=== PATIENT | female | born 1995 | race Hispanic/Latino ===

== ENCOUNTER 2025-07-28 14:42 | Emergency (ER) | payer OTHER, SELFPAY ==
--- NOTE | ~2025-07-28 | US_ITS ---
EXAMINATION: US OB <=14 wk fetus w TV, 07/28/2025 16:30 CDT HISTORY: RLQ pain, +preg test Comparison: None Technique: Taylor-scale and color Doppler images were obtained. Findings: Uterus anteverted 8.6 x 4.1 x 4.3 cm, section scar is noted with nonspecific fluid measuring 7 x 6 x 7 mm. Endometrium 1.4 cm, no increased flow. Right ovary 4.3 x 3.1 x 3.1 cm, probable dominant complex follicle 1.9 x 2.2 cm, no adnexal mass, normal flow. Left ovary 2.3 x 1.9 x 2.3 cm, no adnexal mass, normal flow. IMPRESSION: There is no intrauterine gestational sac identified. No adnexal mass to suggest ectopic . Serial beta-hCG and follow-up is recommended Reviewed, dictated and finalized at location P. IMPRESSION: There is no intrauterine gestational sac identified. No adnexal mas s to suggest ectopic . Serial beta-hCG and follow-up is recommended
[2025-07-28 14:53] VITALS: BP 114/74; PULSE 100; RESP 16; TEMP 36.4; O2SAT 99
--- NOTE | 2025-07-28 14:59 | ED.ABDPAIN ---
HPI - Abdominal Pain General Chief Complaint: Abdominal Pain Stated Complaint: right flank pain Time Seen by Provider: 07/28/25 14:49 Source: patient Mode of arrival: ambulatory Limitations: no limitations History of Present Illness HPI narrative: Patient is a 29 y/o female, with PMH of bariatric surgery, who presents to the ED with c/o R sided abd pain. Patient is Croatian-speaking. [employer] bilingual interpreter was utilized for assistance with translation. Reports she developed pain throughout her right lower abdomen, radiating around to her right lower back this morning. Pain has been constant. She has not taken anything for the pain. Denies history of similar pain. Does report having slight discomfort with urination today but this has resolved. Denies hematuria. Denies history of kidney stones. Denies nausea, vomiting, diarrhea. Last bowel movement was 3 days ago. Denies fevers. Related Data Allergies Allergy/AdvReac Type Severity Reaction Status Date / Time No Known Allergies Allergy Verified 07/28/25 15:00 Review of Systems Review of Systems: All systems reviewed & are unremarkable except as noted in HPI. All systems reviewed & are unremarkable except as noted in HPI and below PMFSH Social History Social History Smoking status: Never smoker Do You Feel Safe in your Home?: Yes Lack of Transportation: No Lack of Food: Never True Current Housing: I Have Housing Concerned About Future Housing: No Difficulty Paying Gas/Electric Bills: No Difficulty Paying for Meds: No Currently Unemployed: No Education: High School Diploma/GED Difficulty w/ Childcare or Family Care: No Exam Narrative: GENERAL: Mildly uncomfortable appearing, obese with BMI of 34.9, non-toxic, in no acute distress. HEAD: Normocephalic, atraumatic. RESPIRATORY: Airway patent, respirations nonlabored. Clear to auscultation bilaterally, no rales, rhonchi, wheezing. CARDIOVASCULAR: Regular rate and rhythm without murmurs, rubs, or gallops. ABDOMINAL: Soft, moderate tenderness to palpation R lower abdomen, R lateral lower abdomen, no rebound, nondistended. Normoactive BS. MUSCULOSKELETAL: Moves all extremities. No gross deformities. SKIN: Warm, dry, normal color. NEURO: A&O X3. Speech clear. Cranial nerves II-XII grossly intact. Steady gait. No ataxic movements. PSYCHIATRIC: Appropriate mood and affect. Normal interaction. Course Vital Signs Vital signs: Vital Signs Temperature 97.5 F L 07/28/25 14:53 Pulse Rate 100 07/28/25 14:53 Respiratory Rate 16 07/28/25 14:53 Blood Pressure 114/74 07/28/25 14:53 Pulse Oximetry 99 07/28/25 14:53 Oxygen Delivery Room Air 07/28/25 14:53 Temperature 97.5 F L 07/28/25 14:53 Pulse Rate 84 07/28/25 17:11 Respiratory Rate 16 07/28/25 17:11 Blood Pressure 109/72 07/28/25 17:11 Pulse Oximetry 100 07/28/25 17:11 Oxygen Delivery Room Air 07/28/25 14:53 MDM - Abdominal Pain MDM Narrative Medical decision making narrative: Patient presented to ED with c/o R sided lower abd/flank pain that began this morning. No hx of similar pain. Reports some pain with urinating today. VSS upon arrival. Patient in NAD, but mildly uncomfortable appearing. Patient was given dose of morphine for pain. Bedside urine test was positive in the ED. Patient updated on this. Patient reports her nexplanon was removed 2 months ago. She has not had a normal menstrual cycle in several years. This would make her (hx of 2 previous miscarriages). Discussed that Tylenol is the only safe medication to take in for pain. Advised she did receive 1 dose of opioid medication here and that a 1 time dose should not negatively impact her . Laboratory studies unremarkable. No leukocytosis. Beta HCG 110. UA with 3-5 RBC, no signs of infection. US obtained-no intrauterine gestation, but also no adnexal mass to suggest ectopic. Normal blood flow to bilateral ovaries. Patient will require close outpatient follow-up. Discussed lab and imaging findings extensively with patient. I have low suspicion for acute appendicitis given lack of leukocytosis, fevers. Low suspicion for kidney stone. No previous history of such. Only very small amount RBC in urine. Discussed possibility of implantation pain. Patient advised to have very close follow-up with OBGYN for further evaluation and repeat testing. Discussed strict return precautions, including should pain worsen or continue that she may need to be re-checked for ectopic . Advised to contact OBGYN on Wednesday. Given strict return precautions. Patient and family in agreement with plan. Discharged in stable condition. Medical Records Attestation: I reviewed the patient's medical records. Lab Data Attestation: I reviewed the patient's lab results. 07/28/25 15:04 07/28/25 15:04 Labs: Lab Results 07/28/25 07/28/25 07/28/25 Range/Units 15:04 15:09 15:20 WBC 5.9 (4.5-10.0) K/mm3 RBC 4.53 (4.2-5.4) M/mm3 Hgb 13.7 (12.0-15.0) g/dL Hct 39.4 (37.0-47.0) % MCV 87.0 (80-100) fl MCH 30.2 (26-34) pg MCHC 34.8 (32-36) g/dl RDW 12.0 (11.5-14.5) % Plt Count 286 (150-375) k/mm3 MPV 9.7 (7.4-10.4) fl Immature Gran % (Auto) 0.3 (0-0.5) % Neut % (Auto) 62.0 (45.5-73.1) % Lymph % (Auto) 29.8 (18.3-44.2) % [place] % (Auto) 7.1 (2.6-8.5) % Eos % (Auto) 0.3 (0-4.4) % Baso % (Auto) 0.5 (0.2-1.2) % Lymph # (Auto) 1.76 (0.9-3.2) K/mm3 [place] # (Auto) 0.4 (0.1-0.6) K/mm3 Eos # (Auto) 0.0 (0-0.3) K/mm3 Baso # (Auto) 0.0 (0.0-0.1) K/mm3 Abs Immat Gran (auto) 0.02 (0.00-0.031) K/mm3 Absolute Neuts (auto) 3.7 (1.3-6.7) K/mm3 Absolute Nucleated RBC 0.000 (0.0-0.012) K/mm3 Nucleated RBC % 0.0 (0.0-0.2) % Sodium 138 (137-145) mmol/L Potassium 3.4 (3.4-5.0) mmol/L Chloride 105 (98-107) mmol/L Carbon Dioxide 25 (22-30) mmol/L Anion Gap 8 (4-12) mmol/L BUN 18 H (7-17) mg/dL Creatinine 0.63 L (0.7-1.0) mg/dL Estim Creat Clear Calc 127 ml/min Estimated GFR > 60 (59 - ) Glucose 90 (65-110) mg/dL Calcium 9.0 (8.4-10.2) mg/dL Total Bilirubin 1.3 (0.2-1.3) mg/dL AST 22 (14-36) U/L ALT 14 (6-35) U/L Alkaline Phosphatase 61 (38-126) U/L Total Protein 7.6 (6.3-8.2) g/dL Albumin 4.3 (3.5-5.1) g/dL Lipase 47 (23-300) U/L Beta HCG, Quant 110.87 mIU/ML Urine Color Yellow (Yellow) Urine Appearance Clear (Clear) Urine pH 6.5 (5.0-9.0) Ur Specific [place] 1.030 (1.001-1.035) Urine Protein Trace (Negative) mg/dL Urine Glucose (UA) Negative (Negative) mg/dL Urine Ketones Trace H (Negative) mg/dL Ur Blood (Man) Negative (Negative) Urine Nitrate Negative (Negative) Urine Bilirubin Negative (Negative) Urine Urobilinogen 4.0 H (<2.0) mg/dL Add Ur Microanalysis Reviewed Leukocyte Esterase Rfl Trace H (Negative) MEG/UL Urine RBC 3-5 H (0-2) /hpf Urine WBC 0-5 (0-3) /hpf Ur Squamous Epith Cells Few (Few) /hpf Urine Bacteria 1+ H /hpf Urine Casts 0-2 POC Urine HCG, Qual Positive (Negative) Imaging Data Attestation: I personally reviewed and interpreted this imaging study as follows: Radiologist's impression: ITS Impressions Obstetrics Ultrasound 07/28/25 17:10 IMPRESSION: There is no intrauterine gestational sac identified. No adnexal mass to suggest ectopic . Serial beta-hCG and follow-up is recommended Discharge Plan Discharge Clinical Impression: Early stage of , Right lower quadrant abdominal pain Patient Disposition: Home Condition: Stable Instructions: Antibiotic Form, Abdominal Pain in (ED) Additional Instructions: You will need to follow-up closely with your OBGYN for further evaluation and repeat laboratory testing/ultrasound for your . Call office on Wednesday to make appointment as soon as possible. You may continue Tylenol as needed for pain. Stay well-hydrated. Return to the ED if you experience worsening or severe pain, vaginal bleeding, unable to keep down food or drink, persistent fevers, or any other symptoms of concern. Patient Language: Croatian Prescriptions: No Action Classic 28 mg iron- 800 mcg tablet 1 tablet PO DAILY Qty: 90 3RF Follow-up/Referrals: UNKNOWN,DOCTOR [Primary Care Provider] Time of Disposition: 17:23
[2025-07-28 15:10] LABS: Hematocrit 39.4 % (37.0-47.0); Hemoglobin 13.7 g/dL (12.0-15.0); Immature Granulocyte Percent A 0.3 % (0-0.5); Lymphocytes Absolute Auto 1.76 K/mm3 (0.9-3.2); Mean Corpuscular HGB Conc 34.8 g/dl (32-36); Mean Corpuscular Hemoglobin 30.2 pg (26-34); Mean Corpuscular Volume 87.0 fl (80-100); Nucleated Red Blood Cells Absolute Auto 0.000 K/mm3 (0.0-0.012); Nucleated Red Blood Cells Perc 0.0 % (0.0-0.2); Platelet Count Result 286 k/mm3 (150-375); Red Blood Count 4.53 M/mm3 (4.2-5.4); White Blood Count 5.9 K/mm3 (4.5-10.0)
[2025-07-28] MEDS: ONDANSETRON INJ 4 MG/2 ML VIAL IV PUSH (15:10)
[2025-07-28] MEDS: MORPHINE SULFATE (*CRX) 4 MG/ML INJ IV PUSH (15:12)
[2025-07-28 15:20] VITALS: BP 110/68; PULSE 80; RESP 15; O2SAT 100
[2025-07-28 15:22] LABS: BEDSIDEPREGUCG Positive (Negative)
--- NOTE | 2025-07-28 15:23 | PC.NURSE ---
EDP informed of pt bedside results
[2025-07-28 15:30] LABS: Alanine Aminotransferase 14 U/L (6-35); Albumin Level 4.3 g/dL (3.5-5.1); Alkaline Phosphatase 61 U/L (38-126); Anion Gap 8 mmol/L (4-12); Aspartate Amino Transferase 22 U/L (14-36); Bilirubin,Total 1.3 mg/dL (0.2-1.3); Blood Urea Nitrogen 18 mg/dL (7-17); Calcium 9.0 mg/dL (8.4-10.2); Carbon Dioxide 25 mmol/L (22-30); Chloride 105 mmol/L (98-107); Estimated CRCL calculation 127 ml/min; Estimated Glomerular Filt Rate > 60; Glucose 90 mg/dL (65-110); Lipase 47 U/L (23-300); Potassium 3.4 mmol/L (3.4-5.0); Sodium 138 mmol/L (137-145); Total Protein 7.6 g/dL (6.3-8.2)
--- OUTSIDE RECORDS SUMMARY | 2025-07-28 15:30 | XMS_ITS ---
Author Organization Unknown ENCOUNTERS Encounter Performer Location Date Diagnosis Diagnosis Status Pre Admit [place] [id number] [place], [place] [id number] Emergency [facility] [address] [place] [id number] *Note: Encounters from your own facility or health system may be excluded. Allergies, Adverse Reactions, Alerts Allergen Type Severity Identification Date Medications Name Date Quantity Days Supplied GPI Number
[2025-07-28 15:33] LABS: Add Urine Microscopic? YES; Appearance Urine Clear (Clear); Glucose Urine UA Negative (Negative); Leukocyte Esterase Ur Trace LEU/UL (Negative); Need Manual Microscopic Reviewed; Nitrate Urine Negative (Negative); Non Pathogenic Casts 0-2; Specific Grav Ur 1.030 (1.001-1.035)
[2025-07-28 15:59] LABS: Beta HCG Quantitative 110.87 mIU/ML
[2025-07-28 17:11] VITALS: BP 109/72; PULSE 84; RESP 16; O2SAT 100
[2025-07-28 17:53] VITALS: BP 106/65; PULSE 88; RESP 15; TEMP 36.5; O2SAT 100
== END 2025-07-28 17:55 | disposition home or self-care (01) ==
PROVIDERS: Emergency Medicine; Emergency Provider Physician Assistant
DX: R10.31 Right lower quadrant pain (principal); Z33.1 Pregnant state, incidental; Z98.84 Bariatric surgery status
CPT/HCPCS: 36415; 76801; 76817; 80053; 81001; 81025; 83690; 84702; 85025; 96374; 96375; 99284; J2270; J2405

== ENCOUNTER 2025-08-09 22:27 | Emergency (ER) | payer OTHER, SELFPAY ==
--- NOTE | ~2025-08-09 | US_ITS ---
EXAM/PROCEDURE: US OB <=14 wk fetus w TV HISTORY: Vag bleeding in , r/o ectopic COMPARISON: None available. TECHNIQUE: Directed exam for viability and dates performed. Vaginal bleeding. NOTE: Exam somewhat limited due to suboptimal acoustic windows. FINDINGS: Uterus measures 9.2 x 5.0 x 5.2 cm. Gestational sac appears to be present corresponding to estimated gestational age of 5 weeks 5 days. No pole is clearly identified. Right ovary: 2.9 x 2.3 x 2.5 cm Left ovary: 3.0 x 1.8 x 4.1 cm. IMPRESSION: Somewhat limited exam demonstrating probable intrauterine gestation, however no clearly identified pole. Correlate with follow-up quantitative hCG levels, and repeat ultrasound is recommended in 5-7 days or sooner if clinically appropriate. Note: Preliminary radiology report provided by [facility] RAD radiologist. Reviewed, dictated and finalized at location A. ING PHOTOGRAPHER IMPRESSION: Somewhat limited exam demonstrating probable intrauterine gestation , however no clearly identified pole. Correlate with follow-up quantitati ve hCG levels, and repeat ultrasound is recommended in 5-7 days or sooner if cl inically appropriate. Note: Preliminary radiology report provided by [facility] RAD radiologist.
[2025-08-09 22:28] VITALS: BP 105/61; PULSE 99; RESP 14; TEMP 36.7; O2SAT 99
[2025-08-10 00:39] LABS: Hematocrit 36.9 % (37.0-47.0); Hemoglobin 12.6 g/dL (12.0-15.0); INR 1.0; Immature Granulocyte Percent A 3.5 % (0-0.5); Lymphocytes Absolute Auto 2.73 K/mm3 (0.9-3.2); Mean Corpuscular HGB Conc 34.1 g/dl (32-36); Mean Corpuscular Hemoglobin 30.3 pg (26-34); Mean Corpuscular Volume 88.7 fl (80-100); Nucleated Red Blood Cells Absolute Auto 0.000 K/mm3 (0.0-0.012); Nucleated Red Blood Cells Perc 0.0 % (0.0-0.2); Platelet Count Result 267 k/mm3 (150-375); Prothrombin Time 13.7 Seconds (11.1-14.7); Red Blood Count 4.16 M/mm3 (4.2-5.4); White Blood Count 7.7 K/mm3 (4.5-10.0)
[2025-08-10 00:40] LABS: Partial Thromboplastin Time 28.6 Seconds (22.3-36.8)
[2025-08-10 00:42] LABS: Alanine Aminotransferase 14 U/L (6-35); Albumin Level 4.2 g/dL (3.5-5.1); Alkaline Phosphatase 44 U/L (38-126); Anion Gap 8 mmol/L (4-12); Aspartate Amino Transferase 24 U/L (14-36); Bilirubin,Total 0.4 mg/dL (0.2-1.3); Blood Urea Nitrogen 18 mg/dL (7-17); Calcium 8.8 mg/dL (8.4-10.2); Carbon Dioxide 24 mmol/L (22-30); Chloride 104 mmol/L (98-107); Estimated CRCL calculation 124 ml/min; Estimated Glomerular Filt Rate > 60; Glucose 109 mg/dL (65-110); Potassium 3.9 mmol/L (3.4-5.0); Sodium 136 mmol/L (137-145); Total Protein 7.1 g/dL (6.3-8.2)
[2025-08-10 00:58] LABS: Beta HCG Quantitative 12570.00 mIU/ML
[2025-08-10 03:18] VITALS: BP 103/67; PULSE 75; RESP 16; O2SAT 100
--- NOTE | 2025-08-10 03:35 | ED.GENADULT ---
HPI - General Adult General Chief complaint: ENRICHMENT ASSISTANT Stated complaint: preg vag bleed Time Seen by Provider: 08/10/25 00:20 History of Present Illness HPI narrative: This is a G4 P 1 presenting for vaginal bleeding in . She had her IUD removed and has not had a period since then. However she has now had a positive test at home. She then developed spotting yesterday which is turn into red bleeding and passage of clots today. She does have some crampy abdominal pain. She has not seen OBGYN Related Data Allergies Allergy/AdvReac Type Severity Reaction Status Date / Time No Known Allergies Allergy Verified 08/09/25 22:32 [facility] Social History Social History (Updated 08/08/25 @ 08:50 by Helen Quintero [facility]) Alcohol intake: current Substance use: never Substance use type: does not use Do You Feel Safe in your Home?: Yes Lack of Transportation: No Lack of Food: Never True Current Housing: I Have Housing Concerned About Future Housing: No Difficulty Paying Gas/Electric Bills: No Difficulty Paying for Meds: No Currently Unemployed: No Education: High School Diploma/GED Difficulty w/ Childcare or Family Care: No Living arrangements: with family Gender identity (if verbalized by the patient): Female Exam Narrative: APPEARANCE: No apparent distress. Head: atraumatic. EYES: EOMI, NOSE: Atraumatic NECK: Trachea midline RESPIRATORY: No increased rate of breathing CARDIOVASCULAR: RRR, ABDOMINAL: Tender to palpation in the suprapubic region. No guarding or rebound. MUSCULOSKELETAl: No obvious deformities NEURO: Alert. Moving 4/4 extremities SKIN:: Warm, dry. Normal color PSYCHIATRIC: Normal affect Course Vital Signs Vital signs: Vital Signs Temperature 98.1 F 08/09/25 22:28 Pulse Rate 99 08/09/25 22:28 Respiratory Rate 14 08/09/25 22:28 Blood Pressure 105/61 08/09/25 22:28 Pulse Oximetry 99 08/09/25 22:28 Oxygen Delivery Room Air 08/09/25 22:28 Temperature 98.3 F 08/10/25 03:45 Pulse Rate 76 08/10/25 03:45 Respiratory Rate 16 08/10/25 03:45 Blood Pressure 100/78 08/10/25 03:45 Pulse Oximetry 99 08/10/25 03:45 Oxygen Delivery Room Air 08/09/25 22:28 Medical Decision Making MDM Narrative Medical decision making narrative: -Course: 29-year-old female presenting [place] [address]. Patient is O negative given 1 dose of RhoGAM. Ultrasound shows a gestational sac and yolk sac but no definitive pole. Estimated gestational age 5 weeks and 5 days by gestational sac diameter. Patient was informed of the results that she needs to follow-up with her OBGYN next 48 hours for repeat hCG further testing. Patient's given return precautions for bleeding. -DDX includes but is not limited to: Threatened miscarriage, miscarriage, ectopic Vital Signs Vital Signs: Vital Signs Temperature 98.1 F 08/09/25 22:28 Pulse Rate 99 08/09/25 22:28 Respiratory Rate 14 08/09/25 22:28 Blood Pressure 105/61 08/09/25 22:28 Pulse Oximetry 99 08/09/25 22:28 Oxygen Delivery Room Air 08/09/25 22:28 Temperature 98.3 F 08/10/25 03:45 Pulse Rate 76 08/10/25 03:45 Respiratory Rate 16 08/10/25 03:45 Blood Pressure 100/78 08/10/25 03:45 Pulse Oximetry 99 08/10/25 03:45 Oxygen Delivery Room Air 08/09/25 22:28 Lab Data 08/10/25 00:20 08/10/25 00:20 Labs: Lab Results 08/10/25 Range/Units 00:20 WBC 7.7 (4.5-10.0) K/mm3 RBC 4.16 L (4.2-5.4) M/mm3 Hgb 12.6 (12.0-15.0) g/dL Hct 36.9 L (37.0-47.0) % MCV 88.7 (80-100) fl MCH 30.3 (26-34) pg MCHC 34.1 (32-36) g/dl RDW 11.9 (11.5-14.5) % Plt Count 267 (150-375) k/mm3 MPV 10.1 (7.4-10.4) fl Immature Gran % (Auto) 3.5 H (0-0.5) % Neut % (Auto) 52.5 (45.5-73.1) % Lymph % (Auto) 35.6 (18.3-44.2) % [place] % (Auto) 7.3 (2.6-8.5) % Eos % (Auto) 0.7 (0-4.4) % Baso % (Auto) 0.4 (0.2-1.2) % Lymph # (Auto) 2.73 (0.9-3.2) K/mm3 [place] # (Auto) 0.6 (0.1-0.6) K/mm3 Eos # (Auto) 0.1 (0-0.3) K/mm3 Baso # (Auto) 0.0 (0.0-0.1) K/mm3 Abs Immat Gran (auto) 0.27 H (0.00-0.031) K/mm3 Absolute Neuts (auto) 4.0 (1.3-6.7) K/mm3 Absolute Nucleated RBC 0.000 (0.0-0.012) K/mm3 Nucleated RBC % 0.0 (0.0-0.2) % PT 13.7 (11.1-14.7) Seconds INR 1.0 APTT 28.6 (22.3-36.8) Seconds Sodium 136 L (137-145) mmol/L Potassium 3.9 (3.4-5.0) mmol/L Chloride 104 (98-107) mmol/L Carbon Dioxide 24 (22-30) mmol/L Anion Gap 8 (4-12) mmol/L BUN 18 H (7-17) mg/dL Creatinine 0.62 L (0.7-1.0) mg/dL Estim Creat Clear Calc 124 ml/min Estimated GFR > 60 (59 - ) Glucose 109 (65-110) mg/dL Calcium 8.8 (8.4-10.2) mg/dL Total Bilirubin 0.4 (0.2-1.3) mg/dL AST 24 (14-36) U/L ALT 14 (6-35) U/L Alkaline Phosphatase 44 (38-126) U/L Total Protein 7.1 (6.3-8.2) g/dL Albumin 4.2 (3.5-5.1) g/dL Beta HCG, Quant 96150.00 mIU/ML Blood Type O Negative Antibody Screen Negative Screen Not Reportable Baby's Blood Type Not Reportable Baby's FEI Not Reportable Doses of RhIg Required 1 Discharge Plan Discharge Clinical Impression: Threatened miscarriage Patient Disposition: Home Condition: Stable Instructions: Antibiotic Form, Threatened Miscarriage (ED) Additional Instructions: You were seen in the emergency department for vaginal bleeding in . This is a threatened miscarriage. Please follow-up with your OBGYN in the next 48-72 hours. [place] [address] on 08/10. If you develop significant bleeding of more than 1 pad an hour for 2 hours in a row please return to the ED for re-evaluation. Acudi? al servicio de urgencias por sangrado vaginal dianne el embarazo. Se trata de gracia amenaza de aborto. Por favor, consulte con muro ginec?logo en las pr?ximas 48-72 horas. Muro nivel de hCG [place] de [address] el 7 de . Si presenta un sangrado abundante (m?s de gracia compresa por hora) dianne dos horas seguidas, regrese al servicio de urgencias para gracia reevaluaci?n. Patient Language: Georgian Prescriptions: No Action Classic 28 mg iron- 800 mcg tablet 1 tablet PO DAILY Qty: 90 3RF ondansetron HCl 4 mg tablet 4 mg PO Q6H PRN (Reason: nausea and vomiting) Qty: 30 1RF progesterone micronized 200 mg capsule 200 mg vaginal QHS Qty: 30 0RF Follow-up/Referrals: UNKNOWN,DOCTOR [Primary Care Provider]
[2025-08-10 03:45] VITALS: BP 100/78; PULSE 76; RESP 16; TEMP 36.8; O2SAT 99
== END 2025-08-10 04:06 | disposition home or self-care (01) ==
PROVIDERS: Emergency Provider Emergency Medicine
DX: O20.0 Threatened abortion (principal); Z3A.01 Less than 8 weeks gestation of pregnancy
CPT/HCPCS: 36415; 76801; 76817; 80053; 84702; 85025; 85461; 85610; 85730; 86850; 86900; 86901; 90384; 96372; 99284; J2790

== ENCOUNTER 2025-08-12 16:26 | Emergency (ER) | payer OTHER, SELFPAY ==
[2025-08-12 16:33] VITALS: BP 118/63; PULSE 124; RESP 14; O2SAT 100
--- NOTE | 2025-08-12 16:35 | ED_ITS ---
HPI - Female Genitourinary General Chief complaint: Vaginal Bleeding Stated complaint: vaginal bleeding Time Seen by Provider: 08/12/25 16:34 Source: patient Mode of arrival: ambulatory Limitations: no limitations History of Present Illness HPI Narrative: 29 years old female, does not speak Persian came to our emergency room because of vaginal bleeding worse today than 2 days ago. Patient was seen in our emergency room 2 days ago, pelvic ultrasound showed Probable intrauterine gestation., beta hCG quant 89475.00. Patient is O negative, 1 dose of RhoGAM was given 2 days ago Patient denies any abdominal pain. Patient is 4, para 1 Patient is scheduled to see her OBGYN on August 17. Related Data Allergies Allergy/AdvReac Type Severity Reaction Status Date / Time No Known Allergies Allergy Verified 08/09/25 22:32 Review of Systems 2 Review of Systems: All systems reviewed & are unremarkable except as noted in HPI and below PMFSH Social History Social History Alcohol intake: current Substance use: never Substance use type: does not use Do You Feel Safe in your Home?: Yes Lack of Transportation: No Lack of Food: Never True Current Housing: I Have Housing Concerned About Future Housing: No Difficulty Paying Gas/Electric Bills: No Difficulty Paying for Meds: No Currently Unemployed: No Education: High School Diploma/GED Difficulty w/ Childcare or Family Care: No Living arrangements: with family Gender identity (if verbalized by the patient): Female Exam 2 Narrative: General appearance: Well-developed, well-nourished Skin: Normal color Chest and respiratory: Airway patent, no respiratory distress, no accessory muscle use Heart: Regular rate/rhythm Abdomen: Soft, nontender, no organomegaly, quiet bowel sounds Pelvic exam showed no active vaginal bleed, 1 long Q-tip was enough to dry the whole vaginal pouch. 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, no gross motor deficit Course Vital Signs Vital signs: Vital Signs Pulse Rate 124 H 08/12/25 16:33 Respiratory Rate 14 08/12/25 16:33 Blood Pressure 118/63 08/12/25 16:33 Pulse Oximetry 100 08/12/25 16:33 Oxygen Delivery Room Air 08/12/25 16:33 Pulse Rate 76 08/12/25 18:06 Respiratory Rate 16 08/12/25 18:06 Blood Pressure 109/76 08/12/25 18:06 Pulse Oximetry 99 08/12/25 18:06 Oxygen Delivery Room Air 08/12/25 16:33 MDM - Female Genitourinary MDM Narrative Medical decision making narrative: Patient came with fast bleed, Patient was seen in our emergency room 2 days ago, workup showed positive , ultrasound showed possible intrauterine Workup today showed beta hCG 68249 compared to 95568 2 days ago. Pelvic exam showed trace of blood, hemoglobin today is 13.5 compared to 12.62 2 days ago. Patient is scheduled to see her OBGYN in 5 days Diagnosis threatened Patient was advised to take it easy, pelvic rest, bed rest, plenty of fluid intake and Tylenol as needed. The pt was discharged to home.the pt,s condition upon discharge was fair,education was provided to the pt in reference to the final impression,discharge study results,treatment,prognosis and need for follow up . Differential Diagnosis Differential diagnosis: Likely other (Threatened , miscarriage) Medical Records Attestation: I reviewed the patient's medical records. Lab Data Attestation: I reviewed the patient's lab results. 08/12/25 16:51 08/12/25 16:51 Labs: Lab Results 08/12/25 Range/Units 16:51 WBC 6.7 (4.5-10.0) K/mm3 RBC 4.45 (4.2-5.4) M/mm3 Hgb 13.5 (12.0-15.0) g/dL Hct 38.6 (37.0-47.0) % MCV 86.7 (80-100) fl MCH 30.3 (26-34) pg MCHC 35.0 (32-36) g/dl RDW 11.9 (11.5-14.5) % Plt Count 286 (150-375) k/mm3 MPV 9.9 (7.4-10.4) fl Immature Gran % (Auto) 0.3 (0-0.5) % Neut % (Auto) 63.0 (45.5-73.1) % Lymph % (Auto) 27.3 (18.3-44.2) % [place] % (Auto) 8.5 (2.6-8.5) % Eos % (Auto) 0.3 (0-4.4) % Baso % (Auto) 0.6 (0.2-1.2) % Lymph # (Auto) 1.84 (0.9-3.2) K/mm3 [place] # (Auto) 0.6 (0.1-0.6) K/mm3 Eos # (Auto) 0.0 (0-0.3) K/mm3 Baso # (Auto) 0.0 (0.0-0.1) K/mm3 Abs Immat Gran (auto) 0.02 (0.00-0.031) K/mm3 Absolute Neuts (auto) 4.3 (1.3-6.7) K/mm3 Absolute Nucleated RBC 0.000 (0.0-0.012) K/mm3 Nucleated RBC % 0.0 (0.0-0.2) % PT 13.9 (11.1-14.7) Seconds INR 1.1 APTT 28.3 (22.3-36.8) Seconds Sodium 135 L (137-145) mmol/L Potassium 3.7 (3.4-5.0) mmol/L Chloride 105 (98-107) mmol/L Carbon Dioxide 22 (22-30) mmol/L Anion Gap 8 (4-12) mmol/L BUN 15 (7-17) mg/dL Creatinine 0.58 L (0.7-1.0) mg/dL Estim Creat Clear Calc Not Reportable Estimated GFR > 60 (59 - ) Glucose 86 (65-110) mg/dL Calcium 9.0 (8.4-10.2) mg/dL Total Bilirubin 0.7 (0.2-1.3) mg/dL AST 22 (14-36) U/L ALT 14 (6-35) U/L Alkaline Phosphatase 48 (38-126) U/L Total Protein 7.7 (6.3-8.2) g/dL Albumin 4.4 (3.5-5.1) g/dL Beta HCG, Quant 20971.00 mIU/ML Critical Care Time Critical Care Time Critical Care Time: No Discharge Plan Discharge Clinical Impression: , spontaneous threatened, Arabic speaking patient Patient Disposition: Home Condition: Stable Instructions: Threatened Miscarriage (ED) Additional Instructions: Return if symptoms are worsening , call your OBGYN for appointment, take Tylenol as as needed for aches and pain, continue home medications. Pelvic rest, bed rest., encourage fluid intake Patient Language: Arabic Prescriptions: No Action Classic 28 mg iron- 800 mcg tablet 1 tablet PO DAILY Qty: 90 3RF ondansetron HCl 4 mg tablet 4 mg PO Q6H PRN (Reason: nausea and vomiting) Qty: 30 1RF progesterone micronized 200 mg capsule 200 mg vaginal QHS Qty: 30 0RF Follow-up/Referrals: UNKNOWN,DOCTOR [Primary Care Provider]
[2025-08-12 16:59] LABS: Hematocrit 38.6 % (37.0-47.0); Hemoglobin 13.5 g/dL (12.0-15.0); Immature Granulocyte Percent A 0.3 % (0-0.5); Lymphocytes Absolute Auto 1.84 K/mm3 (0.9-3.2); Mean Corpuscular HGB Conc 35.0 g/dl (32-36); Mean Corpuscular Hemoglobin 30.3 pg (26-34); Mean Corpuscular Volume 86.7 fl (80-100); Nucleated Red Blood Cells Absolute Auto 0.000 K/mm3 (0.0-0.012); Nucleated Red Blood Cells Perc 0.0 % (0.0-0.2); Platelet Count Result 286 k/mm3 (150-375); Red Blood Count 4.45 M/mm3 (4.2-5.4); White Blood Count 6.7 K/mm3 (4.5-10.0)
--- NOTE | 2025-08-12 17:00 | PC.NURSE ---
Assisted Dr Zamarripa w/ pelvic exam. Pt tolerated exam.
--- NOTE | 2025-08-12 17:01 | PC.NURSE ---
Per Dr. Zamarripa, 1L of fluids at a time
[2025-08-12] MEDS: SODIUM CHLORIDE 0.9% IV 1,000 ML 999 ML IV CONT (17:09)
[2025-08-12 17:10] LABS: INR 1.1; Prothrombin Time 13.9 Seconds (11.1-14.7)
[2025-08-12 17:11] LABS: Partial Thromboplastin Time 28.3 Seconds (22.3-36.8)
[2025-08-12 17:13] LABS: Alanine Aminotransferase 14 U/L (6-35); Albumin Level 4.4 g/dL (3.5-5.1); Alkaline Phosphatase 48 U/L (38-126); Anion Gap 8 mmol/L (4-12); Aspartate Amino Transferase 22 U/L (14-36); Bilirubin,Total 0.7 mg/dL (0.2-1.3); Blood Urea Nitrogen 15 mg/dL (7-17); Calcium 9.0 mg/dL (8.4-10.2); Carbon Dioxide 22 mmol/L (22-30); Chloride 105 mmol/L (98-107); Estimated Glomerular Filt Rate > 60; Glucose 86 mg/dL (65-110); Potassium 3.7 mmol/L (3.4-5.0); Sodium 135 mmol/L (137-145); Total Protein 7.7 g/dL (6.3-8.2)
[2025-08-12 17:54] LABS: Beta HCG Quantitative 22104.00 mIU/ML
[2025-08-12 18:06] VITALS: BP 109/76; PULSE 76; RESP 16; O2SAT 99
--- NOTE | 2025-08-12 18:34 | PC.NURSE ---
abeba was used by this RN and dr Zamarripa to provide test results to the pt
[2025-08-12 18:39] VITALS: BP 115/70; PULSE 80; RESP 16; O2SAT 99
== END 2025-08-12 18:41 | disposition home or self-care (01) ==
PROVIDERS: Physician Assistant; Emergency Provider Emergency Medicine
DX: O20.0 Threatened abortion (principal)
CPT/HCPCS: 36415; 80053; 84702; 85025; 85461; 85610; 85730; 86850; 86880; 86900; 86901; 96360; 99284; J7030

== ENCOUNTER 2025-09-22 19:32 | Emergency (ER) | payer OTHER, SELFPAY ==
--- NOTE | ~2025-09-22 | XR_ITS ---
Examination: XR chest 1V portable Clinical History: sob Comparison: None Technique: Portable AP Findings: Heart size upper limit of normal. Left lung haziness from overlying soft tissue artifact. Lungs clear. No acute bony abnormality. IMPRESSION: 1. No acute cardiopulmonary findings given portable technique. Reviewed, dictated and finalized at location R. 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
[2025-09-22 19:38] VITALS: BP 119/68; PULSE 88; RESP 20; TEMP 36.3; O2SAT 99
[2025-09-22 21:23] VITALS: BP 98/71; PULSE 71; RESP 18; O2SAT 98
--- NOTE | 2025-09-22 21:38 | ECG_ITS ---
Test Date: 2025-09-22 22:38:23 Measurements Intervals [place] Rate: 91 P: 40 [place]: 148 QRS: 0 QRSD: 95 T: 16 QT: 356 QTc: 438 Interpretive Statements SINUS RHYTHM DELAYED PRECORDIAL R/S TRANSITION LOW QRS VOLTAGE IN PRECORDIAL LEADS MODERATE T-WAVE ABNORMALITY, CONSIDER ANTERIOR ISCHEMIA ABNORMAL ECG No previous ECG available for comparison Electronically Signed On 09-23-2025 08:25:29 VALIDATION LEADER by Austin Rod D.O.
--- NOTE | 2025-09-22 21:38 | ED.GENADULT ---
HPI - General Adult General Chief complaint: Unspecified Stated complaint: 12 wks preg, body aches and SOB Time Seen by Provider: 09/22/25 21:11 Source: patient Mode of arrival: ambulatory Limitations: language barrier (using [employer] interpreter) History of Present Illness HPI narrative: This is a 30-year-old female that presents to the emergency department with multiple complaints. Reporting body aches, nausea, vomiting, feeling unwell. She is currently about 12 weeks . Reports she has been having trouble with constipation. She feels lightheaded. Related Data Allergies Allergy/AdvReac Type Severity Reaction Status Date / Time No Known Allergies Allergy Verified 09/22/25 19:42 Review of Systems Review of Systems: All systems reviewed & are unremarkable except as noted in HPI and below PMFSH Social History Social History Smoking status: Never smoker Alcohol intake: current Substance use: never Substance use type: does not use Lack of Transportation: No Lack of Food: Never True Current Housing: I Have Housing Concerned About Future Housing: No Difficulty Paying Gas/Electric Bills: No Difficulty Paying for Meds: No Currently Unemployed: No Education: High School Diploma/GED Difficulty w/ Childcare or Family Care: No Living arrangements: with family Gender identity (if verbalized by the patient): Female Exam Narrative: GENERAL: Well-appearing, well-nourished, and in no acute distress. HEAD: Normocephalic, atraumatic. EYES: EOMI. ENT: Nares clear, no rhinorrhea or epistaxis. Mucous membranes moist. Oropharynx without tonsillar hypertrophy exudate or other lesions. Bilateral TMs pearly cabello non-bulging NECK: Supple. No adenopathy or masses. CHEST: Clear to auscultation. No respiratory distress. No wheezes rales or rhonchi HEART: Regular rate and rhythm. No murmur heard. Normal peripheral pulses. ABDOMEN: Soft, nontender, nondistended, normal active bowel sounds. EXTREMITIES: Normal range of motion. No edema. SKIN: Warm, dry, no rash. NEURO: No focal deficits. Alert and oriented x3. PSYCH: Normal mood and affect Course Vital Signs Vital signs: Vital Signs Temperature 97.4 F L 09/22/25 19:38 Pulse Rate 88 09/22/25 19:38 Respiratory Rate 20 12/20/25 19:38 Blood Pressure 119/68 09/22/25 19:38 Pulse Oximetry 99 09/22/25 19:38 Oxygen Delivery Room Air 09/22/25 19:38 Temperature 97.4 F L 09/22/25 19:38 Pulse Rate 80 09/23/25 00:44 Respiratory Rate 18 09/23/25 00:44 Blood Pressure 114/70 09/23/25 00:44 Pulse Oximetry 100 09/23/25 00:44 Oxygen Delivery Room Air 09/22/25 19:38 Procedures Other Procedure Procedure 1: Other Procedure: Bedside ultrasound shows positive cardiac motion and activity [facility] Narrative Medical decision making narrative: This is a 30-year-old female that presents to the emergency department with multiple complaints. Reporting body aches, nausea, vomiting, feeling unwell, constipation. She is currently about 12 weeks . Patient is afebrile and nontoxic appearing. Her vitals are stable. CBC without leukocytosis. Metabolic panel without concerning findings. Urine without evidence of infection. Influenza and COVID screens are negative. Chest x-ray without acute cardiopulmonary abnormality. Bedside ultrasound shows positive cardiac motion and activity. Patient updated on her workup. Instructed to have further follow-up with her OB Differential Diagnosis Differential Diagnosis: Electrolyte derangement, dehydration, viral syndrome, pneumonia, COVID, influenza, UTI Lab Data [facility] [place] Lab Attestation statement: I personally reviewed the patient's lab results. 09/22/25 21:50 09/22/25 21:50 Labs: Lab Results 09/22/25 09/22/25 09/23/25 Range/Units 21:46 21:50 00:41 WBC 7.8 (4.5-10.0) K/mm3 RBC 4.39 (4.2-5.4) M/mm3 Hgb 13.5 (12.0-15.0) g/dL Hct 37.8 (37.0-47.0) % MCV 86.1 (80-100) fl MCH 30.8 (26-34) pg MCHC 35.7 (32-36) g/dl RDW 12.3 (11.5-14.5) % Plt Count 297 (150-375) k/mm3 MPV 9.4 (7.4-10.4) fl Immature Gran % (Auto) 0.3 (0-0.5) % Neut % (Auto) 70.6 (45.5-73.1) % Lymph % (Auto) 21.5 (18.3-44.2) % Hubbard % (Auto) 7.2 (2.6-8.5) % Eos % (Auto) 0.3 (0-4.4) % Baso % (Auto) 0.1 L (0.2-1.2) % Lymph # (Auto) 1.67 (0.9-3.2) K/mm3 Hubbard # (Auto) 0.6 (0.1-0.6) K/mm3 Eos # (Auto) 0.0 (0-0.3) K/mm3 Baso # (Auto) 0.0 (0.0-0.1) K/mm3 Abs Immat Gran (auto) 0.02 (0.00-0.031) K/mm3 Absolute Neuts (auto) 5.5 (1.3-6.7) K/mm3 Absolute Nucleated RBC 0.000 (0.0-0.012) K/mm3 Nucleated RBC % 0.0 (0.0-0.2) % Sodium 134 L (137-145) mmol/L Potassium 3.7 (3.4-5.0) mmol/L Chloride 106 (98-107) mmol/L Carbon Dioxide 21 L (22-30) mmol/L Anion Gap 7 (4-12) mmol/L BUN 15 (7-17) mg/dL Creatinine 0.48 L (0.7-1.0) mg/dL Estim Creat Clear Calc Not Reportable Estimated GFR > 60 (59 - ) Glucose 79 (65-110) mg/dL Calcium 9.2 (8.4-10.2) mg/dL Total Bilirubin 0.6 (0.2-1.3) mg/dL AST 21 (14-36) U/L ALT 11 (6-35) U/L Alkaline Phosphatase 49 (38-126) U/L Total Protein 7.5 (6.3-8.2) g/dL Albumin 4.0 (3.5-5.1) g/dL Urine Color Yellow (Yellow) Urine Appearance Clear (Clear) Urine pH 6.0 (5.0-9.0) Ur Specific Howells 1.030 (1.001-1.035) Urine Protein Negative (Negative) mg/dL Urine Glucose (UA) Negative (Negative) mg/dL Urine Ketones 3+ H (Negative) mg/dL Ur Blood (Man) Negative (Negative) Urine Nitrate Negative (Negative) Urine Bilirubin Negative (Negative) Urine Urobilinogen 2.0 H (<2.0) mg/dL Leukocyte Esterase Rfl Negative (Negative) MEG/UL Influenza A (RT-PCR) Negative (Negative) Influenza B (RT-PCR) Negative (Negative) RSV (RT-PCR) Negative (Negative) SARS-CoV-2 RNA (RT-PCR) Negative (Negative) Imaging Data Radiologist's impression: Chest x-ray: No evidence of acute or active process in the chest ECG Data EKG #1: ECG completion date: 09/22/25 normal rate, sinus rhythm, no ST changes and normal QT Critical Care Time Critical Care Time Critical Care Time: No Discharge Plan Discharge Clinical Impression: Nausea and vomiting during , Dehydration Patient Disposition: Home Condition: Stable Instructions: Nausea and Vomiting in (ED), Dehydration (ED) Additional Instructions: Return to the ER if you experience fever, chest pain, shortness of breath, abdominal pain with nausea and vomiting, you are unable to keep down liquids or solids, pelvic cramping, vaginal bleeding, or any other symptoms that are concerning to you Take a Vitamin B6 and Unisom (25mg tab) nightly. You can get these medications over the counter. This will help prevent nausea. Reglan as needed for nausea. Small, frequent meals. [place] diet. Remain well hydrated Follow up with your OB Patient Language: Luxembourgish Prescriptions: New metoclopramide HCl 5 mg tablet 5 mg PO Q6H PRN (Reason: nausea and vomiting) Qty: 10 0RF No Action Classic 28 mg iron- 800 mcg tablet 1 tablet PO DAILY Qty: 90 3RF ondansetron HCl 4 mg tablet 4 mg PO Q6H PRN (Reason: nausea and vomiting) Qty: 30 1RF progesterone micronized 200 mg capsule 200 mg vaginal QHS Qty: 30 0RF Follow-up/Referrals: UNKNOWN,DOCTOR [Primary Care Provider]
[2025-09-22 21:59] LABS: Hematocrit 37.8 % (37.0-47.0); Hemoglobin 13.5 g/dL (12.0-15.0); Immature Granulocyte Percent A 0.3 % (0-0.5); Lymphocytes Absolute Auto 1.67 K/mm3 (0.9-3.2); Mean Corpuscular HGB Conc 35.7 g/dl (32-36); Mean Corpuscular Hemoglobin 30.8 pg (26-34); Mean Corpuscular Volume 86.1 fl (80-100); Nucleated Red Blood Cells Absolute Auto 0.000 K/mm3 (0.0-0.012); Nucleated Red Blood Cells Perc 0.0 % (0.0-0.2); Platelet Count Result 297 k/mm3 (150-375); Red Blood Count 4.39 M/mm3 (4.2-5.4); White Blood Count 7.8 K/mm3 (4.5-10.0)
[2025-09-22 22:08] LABS: Alanine Aminotransferase 11 U/L (6-35); Albumin Level 4.0 g/dL (3.5-5.1); Alkaline Phosphatase 49 U/L (38-126); Anion Gap 7 mmol/L (4-12); Aspartate Amino Transferase 21 U/L (14-36); Bilirubin,Total 0.6 mg/dL (0.2-1.3); Blood Urea Nitrogen 15 mg/dL (7-17); Calcium 9.2 mg/dL (8.4-10.2); Carbon Dioxide 21 mmol/L (22-30); Chloride 106 mmol/L (98-107); Estimated Glomerular Filt Rate > 60; Glucose 79 mg/dL (65-110); Potassium 3.7 mmol/L (3.4-5.0); Sodium 134 mmol/L (137-145); Total Protein 7.5 g/dL (6.3-8.2)
[2025-09-22] MEDS: SODIUM CHLORIDE 0.9% IV 1,000 ML 999 ML IV CONT (22:29)
[2025-09-22 22:36] LABS: Influenza A QL RT-PCR Negative (Negative); Influenza B QL RT-PCR Negative (Negative); RSV RNA, RT-PCR Negative (Negative); SARS-CoV-2 RNA PCR Negative (Negative)
[2025-09-23] MEDS: LACTATED RINGERS 1,000 ML 999 ML IV CONT (00:43)
[2025-09-23 00:44] VITALS: BP 114/70; PULSE 80; RESP 18; O2SAT 100
[2025-09-23 00:53] LABS: Add Urine Microscopic? YES; Appearance Urine Clear (Clear); Glucose Urine UA Negative (Negative); Leukocyte Esterase Ur Negative LEU/UL (Negative); Nitrate Urine Negative (Negative); Specific Grav Ur 1.030 (1.001-1.035)
[2025-09-23 01:55] VITALS: BP 106/69; PULSE 98; RESP 18; O2SAT 99
== END 2025-09-23 01:57 | disposition home or self-care (01) ==
PROVIDERS: Emergency Provider Physician Assistant
DX: O21.9 Vomiting of pregnancy, unspecified (principal); O99.281 Endocrine, nutritional and metabolic diseases complicating pregnancy, first trimester; E86.0 Dehydration; Z20.822 Contact with and (suspected) exposure to COVID-19; Z3A.12 12 weeks gestation of pregnancy; R94.31 Abnormal electrocardiogram [ECG] [EKG]
CPT/HCPCS: 36415; 71045; 80053; 81001; 85025; 87637; 93005; 96360; 96361; 99283; J7030; J7120